=== PATIENT | male | born 1985 | race Caucasian/White ===

== ENCOUNTER → 2017-01-15 | Outpatient (CLI) | payer OTHER ==
[~2017-01-15] MED LIST: AMOXICILLIN500 MG PO; ANAPROX DS550 MG PO; ASPIRIN325 MG PO; AUGMENTIN 875 M1 TA1 PO; BACTRIM DS 8001 TA1 PO; CELEBREX200 MG PO; CLARITIN10 MG PO; CLEOCIN150 MG PO; CLINDAMYCIN HC300 MG PO; DAYPRO600 M1 PO; DEXTROAMPH SACC10 M1 PO; DIAZEPAM10 M1 PO; FIORICET 325 MG1 TAB PO; GABAPENTIN TAB600 MG PO; HYDROCODONE BIT1 T11 PO; KEFLEX500 M1 PO; KEFLEX500 MG PO; MOTRIN800 MG PO; NKHM; NO DAILY MEDS; PEN-VEE K500 MG PO; PEN-VK500 MG PO; PERIDEX 480 ML480 ML PO; PROZAC40 MG PO; TRAMADOL HCL50 MG PO; TRAZODONE50 MG PO; TRIMOX500 MG PO; VALIUM2 MG PO; VALIUM5 MG PO; VENTOLIN H0.09 MG/AC INH; VICO10300 PO; VICODIN 5/500 505 MG PO; VICODIN 500 MG-1 TAB PO; ZANAFLEX4 M1 PO; ZANAFLEX4 M2 PO; ZITHROMAX Z PA250 MG PO
== END | disposition home or self-care (01) ==
LOC: CARD 08:09
DX: F90.9 Attention-deficit hyperactivity disorder, unspecified type (principal)

== ENCOUNTER 2017-02-23 18:02 | Emergency (ER) | payer OTHER ==
[~2017-02-23] VITALS: Ht 187.9 cm; Wt 83.9 kg
== END 2017-02-23 19:16 | disposition left against medical advice (07) ==
LOC: ED 18:02
DX: T40.1X1A Poisoning by heroin, accidental (unintentional), initial encounter (principal); F17.200 Nicotine dependence, unspecified, uncomplicated; Z88.6 Allergy status to analgesic agent; Y92.9 Unspecified place or not applicable

== ENCOUNTER 2017-03-03 08:40 | Inpatient (IN) | payer OTHER ==
[~2017-03-03] VITALS: Ht 187.9 cm; Wt 87.1 kg
[2017-03-03 08:46] VITALS: BP 122/74
[2017-03-03 09:17] LABS: BILIRUBIN NEGATIVE (NEGATIVE); BLOOD NEGATIVE (NEGATIVE); CLARITY CLEAR (CLEAR); COLOR YELLOW (YELLOW); GLUCOSE NEGATIVE (NEGATIVE); KETONE NEGATIVE (NEGATIVE); LEUKO ESTERASE NEGATIVE (NEGATIVE); NITRITE NEGATIVE (NEGATIVE); UROBILINOGEN 0.2 E.U./dl (0.2-1.0)
[2017-03-03 09:22] LABS: BASO # 0.1 10*3/uL (0.0-0.1); BASO % 0.6 % (0.0-1.0); EOS # 0.2 10*3/uL (0.0-0.4); EOS % 1.9 % (1.0-4.0); HEMATOCRIT 51.8 % (42.0-52.0); HEMOGLOBIN 18.1 g/dl (14.0-18.0); LYMPH # 3.6 10*3/uL (1.3-4.4); LYMPH % 28.4 % (27.0-41.0); MEAN CELL VOLUME 93.3 fl (80.0-94.0); MEAN CORPUSCULAR HGB 32.6 pg (27.0-31.0); MEAN CORPUSCULAR HGB CONC 34.9 g/dl (33.0-37.0); MEAN PLATELET VOLUME 9.4 fl (9.6-12.3); MONO # 1.2 10*3/uL (0.1-1.0); MONO % 9.4 % (3.0-9.0); NEUT # 7.5 10*3/uL (2.3-7.9); NEUT % 59.3 % (47.0-73.0); PLATELET COUNT AUTOMATED 345 10*3/uL (130-400); RED BLOOD COUNT 5.55 10*6/uL (4.50-5.90); RED CELL DISTRI WIDTH 13.1 % (0-14.5); WHITE BLOOD COUNT 12.7 10*3/uL (4.8-10.8)
[2017-03-03 09:29] LABS: URINE AMPHETAMINES < 1000 (1000ng/ml); URINE BARBITURATES < 200 (200ng/ml); URINE BENZODIAZEPINES > 200 (200ng/ml); URINE CANNABINOIDS (THC) > 50 (50ng/ml); URINE COCAINE < 300 (300ng/ml); URINE METHADONE < 300 (300ng/ml)
[2017-03-03 09:30] LABS: EPITHELIAL CELLS 0-2; MUCOUS 1+; URINE OPIATES < 300 (300ng/ml); WBC 0-2 wbc/hpf (0-5)
[2017-03-03 09:33] LABS: URINE PHENCYCLIDINE < 25 (25ng/ml)
[2017-03-03 09:36] LABS: ACETAMINOPHEN (TYLENOL) < 2.0 ug/ml (10-30); ALBUMIN 4.1 gm/dl (3.1-4.5); ALKALINE PHOSPHATASE 206 U/L (45-117); BUN 17 mg/dl (7-24); CHLORIDE 100 mmol/L (98-107); ETHYL ALCOHOL < 3.0 mg/dl (<3); POTASSIUM 4.2 mmol/L (3.5-5.1); SGOT/AST 109 IU/L (3-35); SGPT/ALT 164 U/L (12-78); SODIUM 135 mmol/L (136-145); TOTAL PROTEIN 7.9 gm/dL (6.4-8.2)
[2017-03-03 10:31] VITALS: BP 117/75
[2017-03-03 10:50] VITALS: BP 125/75
[2017-03-03] MEDS ORDERED: GABAPENTIN TAB600 MG PO (10:56)
[2017-03-03 12:00] VITALS: BP 132/77
[2017-03-03] MEDS ORDERED: DEXTROAMPHETAMI10 M1 PO (13:54)
[2017-03-03 16:00] VITALS: BP 122/73
--- NOTE | 2017-03-03 16:13 | NUR ---
D/C PLANNING: PATIENT WANTS TO GO [facility] FOR HIS AFTERCARE PLAN. TEN HERNANDEZ B.A. HISTORY FACULTY MEMBER
--- NOTE | 2017-03-03 19:01 | NUR ---
ROBAXIN GIVEN FOR C/O MUSCLE ACHES. WILL MONITOR.
--- NOTE | 2017-03-03 19:44 | NUR ---
P0T REQUESTING HIS NEURONTIN. HOME MEDICATIONS HAVE BEEN REVIEWED BUT NOT CONTINUED. CALLED AND SPOKE TO DR SLOAN, HE WILL CONTINUE IT
[2017-03-03 20:00] VITALS: BP 117/81
--- NOTE | 2017-03-03 20:00 | NUR ---
ASSUMED CARE OF PATIENT. ASSESSMENT COMPLETE. RESTING IN BED. NO VOICED COMPLAINTS. CALL LIGHT IN REACH. WILL CONTINUE TO MONITOR.
--- NOTE | 2017-03-03 21:00 | NUR ---
PT RECEIVED TRAZADONE TO AID WITH SLEEP.
--- NOTE | 2017-03-03 21:41 | NUR ---
PT IS RESTING MORE COMFORTABLY POST TRAZADONE ADMINISTRATION.
[2017-03-04] VITALS: BP 115/69
[2017-03-04 04:00] VITALS: BP 132/79
[2017-03-04 08:00] VITALS: BP 112/87
--- NOTE | 2017-03-04 08:00 | NUR ---
PATIENT UP AND AROUND IN ROOM.
--- NOTE | 2017-03-04 09:30 | NUR ---
AM MEDS TAKEN.
--- NOTE | 2017-03-04 10:00 | NUR ---
PATIENT AMBULATING IN [place].
[2017-03-04 12:00] VITALS: BP 137/73
--- NOTE | 2017-03-04 12:00 | NUR ---
PATIENT AMBULATING IN [place].
--- NOTE | 2017-03-04 14:24 | NUR ---
Patient resting. Responding to scheduled medications with fewer complaints of pain and anxiety.
[2017-03-04 16:00] VITALS: BP 133/74
--- NOTE | 2017-03-04 17:53 | NUR ---
PATIENT CALLED RN INTO THE ROOM AND STATED THAT LAST NIGHT HE FELL COMING OUT OF THE BATHROOM AND INJURED HIS SECOND TOE ON HIS RIGHT FOOT. TOE APPEARS TO BE REDDENED, AND PATIENT COMPLAINS OF IT BEING TENDER TO TOUCH. GABRIELLE PETE NOTIFIED AND ORDERS RECEIVED.
--- NOTE | 2017-03-04 17:57 | NUR ---
PATIENT UP IN [facility] AND IN [employer].
--- NOTE | 2017-03-04 19:27 | NUR ---
SCHEDULED SUBUTEX GIVEN. C/O HOT FLASHES.
--- NOTE | 2017-03-04 19:55 | NUR ---
24 HR chart check completed.
[2017-03-04 20:00] VITALS: BP 137/82
--- NOTE | 2017-03-04 20:02 | NUR ---
C/O CONSTIPATION. MEDICATED WITH SENOKOT ORDERED AND PER PATIENT REQUEST.
--- NOTE | 2017-03-04 20:27 | NUR ---
NO SIGNS OF WITHDRAWAL. SUBUTEX EFFECTIVE.
--- NOTE | 2017-03-04 21:03 | NUR ---
SCHEDULED ATIVAN GIVEN.
--- NOTE | 2017-03-04 21:19 | NUR ---
C/O INSOMNIA. AMBULATING IN [place]WAY. MEDICATED WITH PRN TRAZADONE.
--- NOTE | 2017-03-04 21:56 | NUR ---
CONTINUES TO AMBULATE IN [place]. CONTINUED COMPLAINTS OF INSOMNIA. ADDITIONAL DOSE OF TRAZADONE GIVEN.
--- NOTE | 2017-03-04 22:02 | NUR ---
DENIES WITHDRAWAL SYMPTOMS. ATIVAN EFFECTIVE.
--- NOTE | 2017-03-04 22:09 | NUR ---
Hep Lock discontinued. Site asymptomatic. Pressure applied. Sterile dressing applied. ROBBIN LEYVA
--- NOTE | 2017-03-04 23:40 | NUR ---
DENIES PAIN. MORPHINE EFFECTIVE.
[2017-03-05] VITALS: BP 123/66
--- NOTE | 2017-03-05 | NUR ---
PATIENT ASLEEP. NO SIGNS OF DISTRESS.
--- NOTE | 2017-03-05 04:34 | NUR ---
ATIVAN AND SUBUTEX GIVEN ORDERED.
--- NOTE | 2017-03-05 05:27 | NUR ---
PATIENT ASLEEP. NO SIGNS AND SYMPTOMS OF WITHDRAWAL. ATIVAN AND SUBUTEX EFFECTIVE.
[2017-03-05 08:00] VITALS: BP 120/89
--- NOTE | 2017-03-05 09:12 | NUR ---
Medicated with vistaril, robaxin and sennokot per prn order and pt request for anxiety medication, muscle aches and no bm today.
--- NOTE | 2017-03-05 10:15 | NUR ---
States that medication given for anxiety and muscle aches effective.
[2017-03-05 12:00] VITALS: BP 124/69
[2017-03-05 16:00] VITALS: BP 119/67
--- NOTE | 2017-03-05 17:02 | NUR ---
Medicated fo rgeneralized discomfort and anxiety.
[2017-03-05 20:00] VITALS: BP 135/80
--- NOTE | 2017-03-05 20:05 | NUR ---
MEDICATED WITH ATIVAN PO PER PT'S REQUEST FOR ANXIETY.
--- NOTE | 2017-03-05 20:20 | NUR ---
PT. STATES THAT HE MADE AN APPT. FOR TOMORROW MORNING AT [facility] FOR 8:30 A.M. AND WOULD LIKE TO LEAVE AT 7:30 A.M. PT. STATES THAT IF HE CANNOT LEAVE AT THAT TIME HE WILL SIGN OUT AMA. INFORMED PT. THAT I WOULD INFORM THE
--- NOTE | 2017-03-05 20:30 | NUR ---
CALLED DR. SLOAN PERTAINING TO PT. REQUESTING TO BE DISCHARGED AT 7:[address] SLOAN STATED THAT HIS LAST SUBUTEX IS AT 4 A.M. & THAT THE DOCTORS IN THE MORNING WILL NOT BE ROUNDING THAT EARLY. INFORMED DR. SLOAN THAT PATIENT STATED THAT HE WOULD HAVE TO LEAVE AMA.
--- NOTE | 2017-03-05 21:37 | NUR ---
MEDICATED WITH TRAZODONE PER PT'S REQUEST FOR INSOMNIA.
--- NOTE | 2017-03-05 22:24 | NUR ---
MEDICATED WITH TRAZODONE PER PT'S REQUEST FOR INSOMNIA.
--- NOTE | 2017-03-05 22:54 | NUR ---
MEDICATED WITH ROBAXIN FOR MUSCLE ACHES & VISTARIL FOR ANXIETY.
[2017-03-06] VITALS: BP 106/51
--- NOTE | 2017-03-06 01:00 | NUR ---
RESTING IN BED WITH EYES CLOSED. CALL LIGHT WITHIN REACH.
[2017-03-06 04:00] VITALS: BP 110/58
--- NOTE | 2017-03-06 05:05 | NUR ---
MEDICATED WITH ROBAXIN FOR MUSCLE ACHES & VISTARIL FOR ANXIETY.
[2017-03-06] MEDS ORDERED: ATARAX,VISTARIL50 MG PO (07:16)
[2017-03-06] MEDS ORDERED: ZOFRAN 4 MG ED2 TAB PO (07:16)
--- NOTE | 2017-03-06 07:28 | NUR ---
PT DISCHARGED. DID NOT SIGN DISCHARGE PAPERS. INSTRUCTED TO F/U WITH DR BUTLER AND [facility].
== END 2017-03-06 07:47 | disposition home or self-care (01) | DRG 897 ==
LOC: ED 08:40 → 5E 10:10
PROVIDERS: Student in an Organized Health Care Education/Training Program; ADMIT Internal Medicine
PROC: HZ2ZZZZ Detoxification Services for Substance Abuse Treatment (ICD-10-PCS; principal; 2017-03-03)
DX: F11.23 Opioid dependence with withdrawal (principal); F10.20 Alcohol dependence, uncomplicated; F12.10 Cannabis abuse, uncomplicated; F14.10 Cocaine abuse, uncomplicated; F17.210 Nicotine dependence, cigarettes, uncomplicated; F41.9 Anxiety disorder, unspecified; Z82.49 Family history of ischemic heart disease and other diseases of the circulatory system; Z88.6 Allergy status to analgesic agent; Z88.8 Allergy status to other drugs, medicaments and biological substances; Z79.51 Long term (current) use of inhaled steroids; Z79.899 Other long term (current) drug therapy; Z71.6 Tobacco abuse counseling

== ENCOUNTER 2019-09-21 15:05 | Emergency (ER) | payer OTHER ==
[~2019-09-21] VITALS: Ht 187.9 cm; Wt 99.8 kg
[~2019-09-21 15:05] MED LIST changes: +ATARAX,VISTARIL50 MG PO; +BUPREN/NALOX SUB 8-2 PO; +DEXTROAMPHETAMI10 M1 PO; +PROVENTIL HFA6.7 GM INH; +ZITHROMAX250 MG PO; +ZOFRAN 4 MG ED2 TAB PO
[2019-09-21] MEDS ORDERED: PROVENTIL HFA6.7 GM INH (15:58)
== END 2019-09-21 16:26 | disposition home or self-care (01) ==
LOC: ED 15:05
DX: J40 Bronchitis, not specified as acute or chronic (principal); R09.1 Pleurisy; F17.200 Nicotine dependence, unspecified, uncomplicated; Z88.8 Allergy status to other drugs, medicaments and biological substances; Z79.899 Other long term (current) drug therapy; Z20.828 Contact with and (suspected) exposure to other viral communicable diseases

== ENCOUNTER → 2020-08-27 | Outpatient (CLI) | payer OTHER | END | disposition home or self-care (01) | LOC: RAD 11:02 | PROVIDERS: ATTEND Nurse Practitioner Family | DX: R05 Cough (principal); R06.02 Shortness of breath; F17.200 Nicotine dependence, unspecified, uncomplicated ==

== ENCOUNTER 2021-08-30 15:25 | Inpatient (IN) | payer OTHER ==
[~2021-08-30] VITALS: Ht 187.9 cm; Wt 101.2 kg
[~2021-08-30 15:25] MED LIST changes: +ABILIFY5 MG PO; +DOXEPIN HCL3 MG PO; +MELATONIN10 M2 PO; +STRATTERA25 MG PO
[2021-08-30 15:31] VITALS: BP 140/89
[2021-08-30 15:50] LABS: BASO # 0.1 10*3/uL (0.0-0.1); EOS # 0.2 10*3/uL (0.0-0.4); EOS % 2.5 % (1.0-4.0); HEMATOCRIT 48.9 % (42.0-52.0); LYMPH # 3.4 10*3/uL (1.3-4.4); LYMPH % 40.8 % (27.0-41.0); MEAN CELL VOLUME 93.7 fl (80.0-94.0); MEAN CORPUSCULAR HGB 31.6 pg (27.0-31.0); MEAN CORPUSCULAR HGB CONC 33.7 g/dl (33.0-37.0); MEAN PLATELET VOLUME 9.6 fl (9.6-12.3); MONO # 0.6 10*3/uL (0.1-1.0); MONO % 7.2 % (3.0-9.0); NEUT % 47.8 % (47.0-73.0); PLATELET COUNT AUTOMATED 281 10*3/uL (130-400); RED BLOOD COUNT 5.22 10*6/uL (4.50-5.90); RED CELL DISTRI WIDTH 11.7 % (0-14.5); WHITE BLOOD COUNT 8.3 10*3/uL (4.8-10.8)
[2021-08-30 16:21] LABS: ALKALINE PHOSPHATASE 205 U/L (45-117); BUN 13 mg/dl (7-24); CHLORIDE 106 mmol/L (98-107); CPK 124 U/L (39-308); CREATININE 0.98 mg/dL (0.70-1.30); POTASSIUM 4.2 mmol/L (3.5-5.1); SGOT/AST 161 IU/L (3-35); SGPT/ALT 244 U/L (12-78); SODIUM 138 mmol/L (136-145); TOTAL PROTEIN 7.5 gm/dL (6.4-8.2)
[2021-08-30 16:35] VITALS: BP 133/73
[2021-08-30 16:59] LABS: BILIRUBIN Negative (Negative); BLOOD Negative (Negative); CLARITY Cloudy (Clear); COLOR Yellow (Yellow); GLUCOSE Trace (Negative); KETONE Negative (Negative); LEUKO ESTERASE 1+ (Negative); NITRITE Negative (Negative); PH 6.5 (4.5-8.0)
[2021-08-30 17:00] LABS: ETHYL ALCOHOL < 3.0 mg/dl (<3)
[2021-08-30 17:09] LABS: URINE AMPHETAMINES > 1000 (1000ng/ml); URINE BARBITURATES < 200 (200ng/ml); URINE BENZODIAZEPINES < 200 (200ng/ml); URINE CANNABINOIDS (THC) > 50 (50ng/ml); URINE COCAINE < 300 (300ng/ml); URINE METHADONE < 300 (300ng/ml); URINE OPIATES < 300 (300ng/ml)
[2021-08-30 17:11] VITALS: BP 142/85
[2021-08-30 17:31] LABS: BACTERIA 1+; RBC 0-2 rbc/hpf (0-2)
[2021-08-30 17:32] LABS: HYALINE CAST 21-30
[2021-08-30 17:36] LABS: URINE PHENCYCLIDINE < 25 (25ng/ml)
[2021-08-30 20:00] VITALS: BP 126/83
[2021-08-31] VITALS: BP 121/75
[2021-08-31 08:00] VITALS: BP 121/86; BP 158/65
[2021-08-31 12:00] VITALS: BP 134/66
[2021-08-31 16:00] VITALS: BP 136/85
[2021-08-31 20:00] VITALS: BP 131/81
[2021-09-01 00:57] VITALS: BP 120/88
[2021-09-01 06:09] LABS: BASO # 0.1 10*3/uL (0.0-0.1); BASO % 0.6 % (0.0-1.0); EOS # 0.3 10*3/uL (0.0-0.4); EOS % 2.9 % (1.0-4.0); HEMATOCRIT 43.5 % (42.0-52.0); LYMPH # 3.3 10*3/uL (1.3-4.4); LYMPH % 35.1 % (27.0-41.0); MEAN CELL VOLUME 96.2 fl (80.0-94.0); MEAN CORPUSCULAR HGB 32.7 pg (27.0-31.0); MEAN PLATELET VOLUME 9.8 fl (9.6-12.3); MONO # 0.8 10*3/uL (0.1-1.0); MONO % 8.6 % (3.0-9.0); NEUT # 4.9 10*3/uL (2.3-7.9); NEUT % 52.3 % (47.0-73.0); PLATELET COUNT AUTOMATED 264 10*3/uL (130-400); RED BLOOD COUNT 4.52 10*6/uL (4.50-5.90); WHITE BLOOD COUNT 9.4 10*3/uL (4.8-10.8)
[2021-09-01 08:00] VITALS: BP 147/98
[2021-09-01 09:35] LABS: ALKALINE PHOSPHATASE 181 U/L (45-117); BUN 14 mg/dl (7-24); CHLORIDE 108 mmol/L (98-107); CREATININE 0.69 mg/dL (0.70-1.30); POTASSIUM 4.2 mmol/L (3.5-5.1); SGOT/AST 86 IU/L (3-35); SGPT/ALT 179 U/L (12-78); SODIUM 139 mmol/L (136-145); TOTAL PROTEIN 6.4 gm/dL (6.4-8.2)
[2021-09-01 12:00] VITALS: BP 142/85
[2021-09-01 20:00] VITALS: BP 152/73
[2021-09-02] VITALS: BP 160/74
[2021-09-02 04:00] VITALS: BP 155/70
[2021-09-02 08:00] VITALS: BP 136/87
[2021-09-02 12:00] VITALS: BP 130/80
== END 2021-09-02 15:17 | disposition home or self-care (01) | DRG 773 ==
LOC: ED 15:25 → 5E 16:15 → EDHOLD 16:15 → 5E 16:37
PROVIDERS: Emergency Medicine; Internal Medicine; ADMIT Emergency Medicine; ATTEND Emergency Medicine
DX: F11.23 Opioid dependence with withdrawal (principal); F41.9 Anxiety disorder, unspecified; F15.10 Other stimulant abuse, uncomplicated; G40.909 Epilepsy, unspecified, not intractable, without status epilepticus; G47.00 Insomnia, unspecified; F10.230 Alcohol dependence with withdrawal, uncomplicated; F17.210 Nicotine dependence, cigarettes, uncomplicated; F12.10 Cannabis abuse, uncomplicated; F14.10 Cocaine abuse, uncomplicated; J45.40 Moderate persistent asthma, uncomplicated; F98.8 Other specified behavioral and emotional disorders with onset usually occurring in childhood and adolescence; F31.81 Bipolar II disorder; F20.9 Schizophrenia, unspecified; F19.982 Other psychoactive substance use, unspecified with psychoactive substance-induced sleep disorder; R74.01 Elevation of levels of liver transaminase levels; Z88.8 Allergy status to other drugs, medicaments and biological substances; Z82.49 Family history of ischemic heart disease and other diseases of the circulatory system; Y92.89 Other specified places as the place of occurrence of the external cause

== ENCOUNTER 2022-01-20 20:23 | Emergency (ER) | payer OTHER ==
[2022-01-20 21:17] LABS: BASO # 0.1 10*3/uL (0.0-0.1); BASO % 0.8 % (0.0-1.0); EOS # 0.2 10*3/uL (0.0-0.4); EOS % 1.7 % (1.0-4.0); LYMPH # 2.4 10*3/uL (1.3-4.4); LYMPH % 21.1 % (27.0-41.0); MEAN CELL VOLUME 97.4 fl (80.0-94.0); MEAN CORPUSCULAR HGB 31.4 pg (27.0-31.0); MEAN CORPUSCULAR HGB CONC 32.2 g/dl (33.0-37.0); MONO # 1.1 10*3/uL (0.1-1.0); MONO % 9.4 % (3.0-9.0); NEUT # 7.6 10*3/uL (2.3-7.9); NEUT % 66.5 % (47.0-73.0); PLATELET COUNT AUTOMATED 325 10*3/uL (130-400); RED BLOOD COUNT 4.62 10*6/uL (4.50-5.90); RED CELL DISTRI WIDTH 11.8 % (0-14.5); WHITE BLOOD COUNT 11.5 10*3/uL (4.8-10.8)
[2022-01-20 21:32] LABS: ALKALINE PHOSPHATASE 160 U/L (45-117); BUN 20 mg/dl (7-24); CHLORIDE 108 mmol/L (98-107); CREATININE 0.92 mg/dL (0.70-1.30); SGOT/AST 101 IU/L (3-35); SGPT/ALT 137 U/L (12-78); SODIUM 140 mmol/L (136-145); TOTAL PROTEIN 6.7 gm/dL (6.4-8.2)
== END 2022-01-21 00:28 | disposition home or self-care (01) ==
LOC: ED 20:23
PROVIDERS: Emergency Medicine
DX: T40.2X1A Poisoning by other opioids, accidental (unintentional), initial encounter (principal); R40.20 Unspecified coma; F20.9 Schizophrenia, unspecified; F31.9 Bipolar disorder, unspecified; F41.9 Anxiety disorder, unspecified; J45.909 Unspecified asthma, uncomplicated; F98.8 Other specified behavioral and emotional disorders with onset usually occurring in childhood and adolescence; F17.210 Nicotine dependence, cigarettes, uncomplicated; Z88.8 Allergy status to other drugs, medicaments and biological substances; Z79.899 Other long term (current) drug therapy; Y92.89 Other specified places as the place of occurrence of the external cause

== ENCOUNTER 2022-02-08 11:47 | Emergency (ER) | payer OTHER ==
[~2022-02-08] VITALS: Ht 187.9 cm; Wt 99.8 kg
[2022-02-08 12:40] LABS: BASO # 0.1 10*3/uL (0.0-0.1); BASO % 0.6 % (0.0-1.0); EOS # 0.1 10*3/uL (0.0-0.4); EOS % 0.7 % (1.0-4.0); HEMATOCRIT 47.5 % (42.0-52.0); LYMPH # 1.7 10*3/uL (1.3-4.4); LYMPH % 15.6 % (27.0-41.0); MEAN CELL VOLUME 97.3 fl (80.0-94.0); MEAN CORPUSCULAR HGB 32.2 pg (27.0-31.0); MEAN CORPUSCULAR HGB CONC 33.1 g/dl (33.0-37.0); MEAN PLATELET VOLUME 9.3 fl (9.6-12.3); MONO # 0.9 10*3/uL (0.1-1.0); MONO % 8.1 % (3.0-9.0); NEUT % 74.7 % (47.0-73.0); PLATELET COUNT AUTOMATED 296 10*3/uL (130-400); RED BLOOD COUNT 4.88 10*6/uL (4.50-5.90); RED CELL DISTRI WIDTH 11.8 % (0-14.5); WHITE BLOOD COUNT 10.6 10*3/uL (4.8-10.8)
[2022-02-08 12:57] LABS: ALKALINE PHOSPHATASE 178 U/L (45-117); BUN 16 mg/dl (7-24); CHLORIDE 107 mmol/L (98-107); CREATININE 0.94 mg/dL (0.70-1.30); POTASSIUM 4.7 mmol/L (3.5-5.1); SGOT/AST 126 IU/L (3-35); SGPT/ALT 134 U/L (12-78); SODIUM 135 mmol/L (136-145); TOTAL PROTEIN 7.1 gm/dL (6.4-8.2)
[2022-02-08 12:59] LABS: ACETAMINOPHEN (TYLENOL) < 5.0 ug/ml (10-30)
[2022-02-08 14:36] LABS: BILIRUBIN Negative (Negative); BLOOD Negative (Negative); CLARITY Clear (Clear); COLOR Dark Yellow (Yellow); GLUCOSE Negative (Negative); KETONE Negative (Negative); LEUKO ESTERASE Negative (Negative); NITRITE Negative (Negative); PH 5.5 (4.5-8.0); SPECIFIC GRAVITY 1.025 (1.001-1.030)
[2022-02-08 14:41] LABS: BACTERIA 1+; MUCOUS 2+; WBC 0-2 wbc/hpf (0-5)
[2022-02-08 14:50] LABS: URINE AMPHETAMINES > 1000 (1000ng/ml); URINE BARBITURATES < 200 (200ng/ml); URINE BENZODIAZEPINES < 200 (200ng/ml); URINE CANNABINOIDS (THC) < 50 (50ng/ml); URINE COCAINE < 300 (300ng/ml); URINE METHADONE < 300 (300ng/ml); URINE OPIATES < 300 (300ng/ml); URINE PHENCYCLIDINE < 25 (25ng/ml)
== END 2022-02-08 15:01 | disposition left against medical advice (07) ==
LOC: ED 11:47
PROVIDERS: Nurse Practitioner Family
DX: T40.2X1A Poisoning by other opioids, accidental (unintentional), initial encounter (principal); L08.9 Local infection of the skin and subcutaneous tissue, unspecified; R74.01 Elevation of levels of liver transaminase levels; F11.10 Opioid abuse, uncomplicated; F15.10 Other stimulant abuse, uncomplicated; Z88.8 Allergy status to other drugs, medicaments and biological substances; Y92.89 Other specified places as the place of occurrence of the external cause

== ENCOUNTER 2024-08-25 09:39 | Emergency (ER) | payer BC, OTHER ==
[~2024-08-25] VITALS: Ht 187.9 cm; Wt 104.3 kg
[2024-08-25] MEDS ORDERED: LISINOPRIL10 M1 PO (09:46)
[2024-08-25] MEDS ORDERED: VENT7GM INH (09:51)
[2024-08-25] MEDS ORDERED: GABAPENTIN ER600 MG PO (09:51)
[2024-08-25] MEDS ORDERED: NEURONTIN600 MG PO (10:10)
== END 2024-08-25 09:58 | disposition home or self-care (01) ==
LOC: ED 09:39
DX: J45.909 Unspecified asthma, uncomplicated (principal); M79.2 Neuralgia and neuritis, unspecified; Z76.0 Encounter for issue of repeat prescription; Z88.8 Allergy status to other drugs, medicaments and biological substances; Z79.899 Other long term (current) drug therapy; Z87.891 Personal history of nicotine dependence